=== PATIENT | female | born 1960 | race Caucasian/White ===

== ENCOUNTER 2022-10-31 09:13 | Emergency (ER) | payer BC ==
[~2022-10-31] VITALS: Ht 157.4 cm; Wt 56.7 kg
[2022-10-31 10:14] LABS: BASO % 0.4 % (0.0-1.0); EOS % 0.1 % (1.0-4.0); HEMATOCRIT 41.8 % (37.0-47.0); LYMPH # 1.4 10*3/uL (1.3-4.4); LYMPH % 15.8 % (27.0-41.0); MEAN CELL VOLUME 92.1 fl (81.0-99.0); MEAN CORPUSCULAR HGB 30.8 pg (27.0-31.0); MEAN CORPUSCULAR HGB CONC 33.5 g/dl (33.0-37.0); MEAN PLATELET VOLUME 10.2 fl (9.6-12.3); MONO # 0.9 10*3/uL (0.1-1.0); MONO % 9.9 % (3.0-9.0); NEUT # 6.7 10*3/uL (2.3-7.9); NEUT % 73.1 % (47.0-73.0); PLATELET COUNT AUTOMATED 248 10*3/uL (130-400); RED BLOOD COUNT 4.54 10*6/uL (4.10-5.10); RED CELL DISTRI WIDTH 14.2 % (0-14.5); WHITE BLOOD COUNT 9.1 10*3/uL (4.8-10.8)
[2022-10-31 10:17] LABS: BILIRUBIN Negative (Negative); BLOOD Negative (Negative); CLARITY Clear (Clear); COLOR Yellow (Yellow); GLUCOSE Negative (Negative); KETONE Negative (Negative); LEUKO ESTERASE Negative (Negative); NITRITE Negative (Negative); PH 6.5 (4.5-8.0); SPECIFIC GRAVITY <= 1.005 (1.001-1.030); UROBILINOGEN 0.2 E.U./dl (0.0-1.0)
[2022-10-31 10:22] LABS: URINE AMPHETAMINES Negative (1000ng/ml); URINE BARBITURATES Negative (200ng/ml); URINE BENZODIAZEPINES Negative (200ng/ml); URINE CANNABINOIDS (THC) Negative (50ng/ml); URINE COCAINE Negative (300ng/ml); URINE METHADONE Negative (300ng/ml); URINE OPIATES Negative (300ng/ml); URINE PHENCYCLIDINE Negative (25ng/ml)
[2022-10-31 10:25] LABS: ACT PARTIAL THROMBO TIME 27.9 SECONDS (20.0-32.1); INTERNATIONAL NORM RATIO 1.2 (2.0-3.5)
[2022-10-31 10:32] LABS: RBC 0-2 rbc/hpf (0-2)
[2022-10-31 10:33] LABS: BACTERIA TRACE; MUCOUS 1+
[2022-10-31 10:39] LABS: ALKALINE PHOSPHATASE 139 U/L (46-116); CHLORIDE 95 mmol/L (98-107); LIPASE 29 U/L (12-53); POTASSIUM 3.4 mmol/L (3.4-5.1); SGPT/ALT 15 U/L (10-49); TOTAL PROTEIN 6.7 gm/dL (6.0-8.0)
[2022-10-31 10:48] LABS: BUN < 5 mg/dl (9-23); ETHYL ALCOHOL < 3.0 mg/dl (<3)
[2022-10-31] MEDS ORDERED: METRONIDAZOLE500 M1 PO (12:15)
[2022-10-31] MEDS ORDERED: CIPRO500 MG PO (12:15)
== END 2022-10-31 13:25 | disposition home or self-care (01) ==
LOC: ED 09:13
PROVIDERS: Emergency Medicine
DX: K52.9 Noninfective gastroenteritis and colitis, unspecified (principal); R11.0 Nausea; R53.1 Weakness; Z79.899 Other long term (current) drug therapy

== ENCOUNTER → 2022-11-04 | Outpatient (CLI) | payer BC ==
[~2022-11-04] MED LIST: CIPRO500 MG PO; METRONIDAZOLE500 M1 PO
[2022-11-05 11:41] LABS: BILIRUBIN 1+ (Negative); BLOOD Negative (Negative); CLARITY Cloudy (Clear); COLOR Dark Yellow (Yellow); GLUCOSE Negative (Negative); KETONE Negative (Negative); LEUKO ESTERASE 1+ (Negative); NITRITE Positive (Negative)
[2022-11-05 11:53] LABS: URINE CREATININE RANDOM 200.74 mg/dL
[2022-11-05 12:49] LABS: BACTERIA 1+; MUCOUS 2+; YEAST 1+
== END | disposition home or self-care (01) ==
LOC: LAB 10:23
PROVIDERS: ATTEND Internal Medicine Nephrology
DX: E87.1 Hypo-osmolality and hyponatremia (principal); R19.7 Diarrhea, unspecified; F10.10 Alcohol abuse, uncomplicated

== ENCOUNTER → 2022-11-05 | Outpatient (CLI) | payer BC | END | disposition home or self-care (01) | LOC: LAB 10:28 | PROVIDERS: ATTEND Internal Medicine Nephrology | DX: E87.1 Hypo-osmolality and hyponatremia (principal); F10.10 Alcohol abuse, uncomplicated; R19.7 Diarrhea, unspecified ==

== ENCOUNTER → 2022-11-16 | Outpatient (CLI) | payer BC | END | disposition home or self-care (01) | LOC: US 01:31 → LAB 01:31 → US 10:00 | PROVIDERS: ATTEND Internal Medicine Nephrology | DX: K80.20 Calculus of gallbladder without cholecystitis without obstruction (principal); J90 Pleural effusion, not elsewhere classified ==

== ENCOUNTER → 2023-10-06 | Outpatient (CLI) | payer BC ==
[~2023-10-06] MED LIST changes: +ANTI-DIARRHEAL2 MG PO; +FUROSEMIDE20 M1 PO; +METOPROLOL SUCC25 M2 PO; +NATURE'S BLEND100 M2 PO; +POTASSIUM CHLO10 ME5 PO
== END | disposition home or self-care (01) ==
LOC: CARD 10-05 12:00
PROVIDERS: ATTEND Thoracic Surgery (Cardiothoracic Vascular Surgery)
DX: I34.81 Nonrheumatic mitral (valve) annulus calcification (principal); Z95.3 Presence of xenogenic heart valve

== ENCOUNTER → 2025-01-09 | Outpatient (CLI) | payer BC | LOC: CARD 00:16 | PROVIDERS: ATTEND Internal Medicine | DX: Z95.3 Presence of xenogenic heart valve (principal) ==